=== PATIENT | male | born 2000 | race Caucasian/White ===

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

== ENCOUNTER 2019-03-07 13:10 | Emergency (ER) | payer MEDICAID ==
--- NOTE | 2019-03-07 15:13 | ER Document Report ---
ED Medical Screen (RME) - General Chief Complaint: Foreign Body Stated Complaint: OBJECT IN THROAT Time Seen by Provider: 03/07/19 15:10 Mode of Arrival: Ambulatory Information source: Patient Notes: 17-year-old male presented to ED for complaint of feeling like something is stuck in his throat. He states he had some chicken about 9AM or a piece of tobacco or a piece of pipe tobacco. She states she does not know what continues she just feels like there is something in the back of the start. Patient is alert oriented respirations regular and unlabored speaking in full sentences. I have greeted and performed a rapid initial assessment of this patient. A comprehensive ED assessment and evaluation of the patient, analysis of test results and completion of medical decision making process will be conducted by an additional ED providers. TRAVEL OUTSIDE OF THE [place] IN LAST 30 DAYS: No - Related Data Allergies/Adverse Reactions: aspirin [Aspirin] Allergy (Mild, Verified 11/27/18 16:14) rash brompheniramine maleate [From Dimetapp] Allergy (Mild, Verified 11/27/18 16:14) dehydrates codeine [Codeine] Allergy (Mild, Verified 11/27/18 16:14) headache stomache dextromethorphan HBr [From Dimetapp] Allergy (Mild, Verified 11/27/18 16:14) dehydrates diphenhydramine HCl [From Benadryl] Allergy (Mild, Verified 11/27/18 16:14) Hyperactivity Penicillins Allergy (Mild, Verified 11/27/18 16:14) rash phenylpropanolamine HCl [From Dimetapp] Allergy (Mild, Verified 11/27/18 16:14) dehydrates pseudoephedrine HCl [From Dimetapp] Allergy (Mild, Verified 11/27/18 16:14) dehydrates topiramate [From Topamax] Allergy (Verified 11/27/18 16:14) Past Medical History - Past Medical History Cardiac Medical History: Reports: Hx Heart Murmur Pulmonary Medical History: Reports: Hx Asthma Renal/ Medical History: Denies: Hx Peritoneal Dialysis Psychiatric Medical History: Reports: Hx Attention Deficit Hyperactivity Disorder Past Surgical History: Reports: Hx Tonsillectomy - Immunizations Immunizations up to date: Yes Hx Diphtheria, Pertussis, Tetanus Vaccination: Yes Physical Exam - Vital signs Vitals: Temp Pulse Resp BP Pulse Ox 97.9 F 50 L 18 108/65 100 03/07/19 13:26 03/07/19 13:26 03/07/19 13:26 03/07/19 13:26 03/07/19 13:26 Course - Vital Signs Vital signs: Temp Pulse Resp BP Pulse Ox 97.9 F 50 L 18 108/65 100 03/07/19 13:26 03/07/19 13:26 03/07/19 13:26 03/07/19 13:26 03/07/19 13:26
--- NOTE | 2019-03-07 16:26 | RADIOLOGY REPORT (SQ) ---
EXAM DESCRIPTION: SOFT TISSUE NECK COMPLETED DATE/TIME: 03/07/2019 4:14 pm REASON FOR STUDY: foreign body in throat COMPARISON: None. NUMBER OF VIEWS: Two views. TECHNIQUE: AP and lateral radiographic image of the soft tissues of the neck. LIMITATIONS: None. FINDINGS: EPIGLOTTIS: Normal. Contour normal. Aryepiglottic folds normal. PREVERTEBRAL SOFT TISSUES: Normal. No soft tissue swelling. SUBGLOTTIC AREA: Normal. No narrowing. RETROPHARYNGEAL SPACE: Normal. No soft tissue masses. BONES: No significant findings. LUNG APICES: Normal. OTHER: No radiopaque foreign body. No other significant finding. IMPRESSION: Normal radiographs of the cervical soft tissues. No radiopaque foreign body identified. TECHNICAL DOCUMENTATION: JOB ID: [id number] [employer]- All Rights Reserved Reading location - IP/workstation name: [email or web address]
[2019-03-07] MEDS ORDERED: LIDOCAINE 2% VISCOUS SOLN 20 ML UDCUP PO ONE (18:58)
--- NOTE | 2019-03-07 18:58 | ER Document Report ---
ED General - General Chief Complaint: Foreign Body Stated Complaint: OBJECT IN THROAT Time Seen by Provider: 03/07/19 15:10 Primary Care Provider: CHARLI DAVIS MD [ACTIVE STAFF] - Follow up in 1 week (for GI follow up) Mode of Arrival: Ambulatory TRAVEL OUTSIDE OF THE [place] IN LAST 30 DAYS: No - HPI Notes: 18-year-old male to the emergency department with complaints of foreign body sensation in his esophagus since this morning. He states that he was eating chicken pot pie and he feels like something got stuck. He states that he feels discomfort and not pain. He has not tried to eat anything else for the rest of the day because he has been worried but admits that he has been drinking water without any difficult. He denies any other complaints today. - Related Data Allergies/Adverse Reactions: aspirin [Aspirin] Allergy (Mild, Verified 11/27/18 16:14) rash brompheniramine maleate [From Dimetapp] Allergy (Mild, Verified 11/27/18 16:14) dehydrates codeine [Codeine] Allergy (Mild, Verified 11/27/18 16:14) headache stomache dextromethorphan HBr [From Dimetapp] Allergy (Mild, Verified 11/27/18 16:14) dehydrates diphenhydramine HCl [From Benadryl] Allergy (Mild, Verified 11/27/18 16:14) Hyperactivity Penicillins Allergy (Mild, Verified 11/27/18 16:14) rash phenylpropanolamine HCl [From Dimetapp] Allergy (Mild, Verified 11/27/18 16:14) dehydrates pseudoephedrine HCl [From Dimetapp] Allergy (Mild, Verified 11/27/18 16:14) dehydrates topiramate [From Topamax] Allergy (Verified 11/27/18 16:14) Past Medical History - General Information source: Patient - Social History Smoking Status: Current Every Day Smoker Chew tobacco use (# tins/day): No Frequency of alcohol use: None Family History: Reviewed & Not Pertinent Patient has suicidal ideation: No Patient has homicidal ideation: No - Past Medical History Cardiac Medical History: Reports: Hx Heart Murmur Pulmonary Medical History: Reports: Hx Asthma Renal/ Medical History: Denies: Hx Peritoneal Dialysis Psychiatric Medical History: Reports: Hx Attention Deficit Hyperactivity Disorder Past Surgical History: Reports: Hx Tonsillectomy - Immunizations Immunizations up to date: Yes Hx Diphtheria, Pertussis, Tetanus Vaccination: Yes Hx Pneumococcal Vaccination: 07/01/00 Review of Systems - Review of Systems Constitutional: denies: Chills, Fever EENT: See HPI, Difficulty swallowing Cardiovascular: denies: Chest pain, Palpitations, Heart racing, Syncope, Dizziness, Lightheaded Respiratory: denies: Cough, Short of breath Gastrointestinal: denies: Abdominal pain, Diarrhea, Nausea, Vomiting Genitourinary: No symptoms reported Musculoskeletal: No symptoms reported Skin: No symptoms reported Hematologic/Lymphatic: No symptoms reported Neurological/Psychological: No symptoms reported -: Yes All other systems reviewed and negative Physical Exam - Vital signs Vitals: Temp Pulse Resp BP Pulse Ox 97.9 F 50 L 18 108/65 100 03/07/19 13:26 03/07/19 13:26 03/07/19 13:26 03/07/19 13:26 03/07/19 13:26 - General General appearance: Appears well, Alert In distress: None - HEENT Head: Normocephalic, Atraumatic Eyes: Normal Pupils: PERRL Ears: Normal External canal: Normal Tympanic membrane: Normal Sinus: Normal Nasal: Normal Mouth/Lips: Normal Mucous membranes: Normal Pharynx: Normal. No: Blood in hypopharynx, Erythema, Exudate, Peritonsillar abscess, Post nasal drainage, Retropharyngeal abscess, Tonsillar hypertrophy, Uvular edema, Potential airway comprom. Neck: Normal, Supple. No: Lymphadenopathy, Meningismus - Respiratory Respiratory status: No respiratory distress Chest status: Nontender Breath sounds: Normal Chest palpation: Normal - Cardiovascular Rhythm: Regular Heart sounds: Normal auscultation Murmur: No - Neurological Neuro grossly intact: Yes Cognition: Normal Orientation: AAOx4 Kristen Coma Scale Eye Opening: Spontaneous [place] Coma Scale Verbal: Oriented [place] Coma Scale Motor: Obeys Commands Kristen Coma Scale Total: 15 Speech: Normal Motor strength normal: LUE, RUE, LLE, RLE Sensory: Normal - Psychological Associated symptoms: Normal affect, Normal mood - Skin Skin Temperature: Warm Skin Moisture: Dry Skin Color: Normal Course - Re-evaluation Re-evalutation: 03/07/19 impression: Sensation of foreign body in esophagus. Patient is tolerating fluids without any difficulty. Will send home with Carafate and have him follow-up with GI specialist. Given strict precautions to return if any worsening symptoms to include inability to hold on fluids. Patient agrees with the plan. - Vital Signs Vital signs: Temp Pulse Resp BP Pulse Ox 97.9 F 50 L 18 108/65 100 03/07/19 13:26 03/07/19 13:26 03/07/19 13:26 03/07/19 13:03/07/19 13:26 - Diagnostic Test Radiology reviewed: Image reviewed, Reports reviewed Discharge - Discharge Clinical Impression: Foreign body sensation in throat Condition: Stable Disposition: HOME, SELF-CARE Instructions: Esophageal Foreign Body ([facility]) Additional Instructions: Take medicines as prescribed. Follow-up with GI specialist without fail. Return immediately if any inability to hold down fluids or intractable vomiting. soft food diet. Prescriptions: Sucralfate [Carafate] 1 gm PO TID #420 ml Referrals: CHARLI DAVIS MD [ACTIVE STAFF] - Follow up in 1 week (for GI follow up)
[2019-03-07 20:04] VITALS: BP 105/60
== END 2019-03-07 20:06 | disposition home or self-care (01) ==
LOC: ER 13:10
DX: R09.89 Other specified symptoms and signs involving the circulatory and respiratory systems (principal); R13.10 Dysphagia, unspecified; F17.200 Nicotine dependence, unspecified, uncomplicated; J45.909 Unspecified asthma, uncomplicated; Z88.8 Allergy status to other drugs, medicaments and biological substances; Z88.5 Allergy status to narcotic agent; Z88.0 Allergy status to penicillin; Z88.6 Allergy status to analgesic agent
CPT/HCPCS: 99283; 70360; J3490

== ENCOUNTER 2019-03-24 08:30 | Emergency (ER) | payer MEDICAID ==
[2019-03-24 08:44] VITALS: BP 123/68
--- NOTE | 2019-03-24 09:09 | ER Document Report ---
HPI - HPI Time Seen by Provider: 03/24/19 08:43 Pain Level: 2 Notes: Patient is a 19-year-old male with no significant past medical history who presents complaining of mild swelling of his lower lip after he had piercings placed into areas 6 weeks ago. Patient states that he has had issues with noticing occasional purulence from the sites as well. Patient does not believe that the piercings are taking well to his lip, but does not want to take them out and wants medication for it. He is able to eat and drink without difficulty. He is urinating normally. He has not noticed any other areas of swelling to his lips or throat. Denies any headache, fever, head injury, neck pain, changes in vision/speech/mentation/hearing, URI, sore throat, chest pain, palpitations, syncope, cough, shortness of breath, wheeze, dyspnea, abdominal pain, nausea/vomiting/diarrhea, urinary retention, dysuria, hematuria, numbness/tingling, or rash. - ROS Systems Reviewed and Negative: Yes All other systems reviewed and negative - CONSTITUTIONAL Constitutional: DENIES: Fever, Chills - EENT EENT: DENIES: Sore Throat, Ear Pain, Eye problems - NEURO Neurology: DENIES: Headache, Weakness, Vision blurred, Dizzinesss / Vertigo - CARDIOVASCULAR Cardiovascular: DENIES: Chest pain - RESPIRATORY Respiratory: DENIES: Trouble Breathing, Coughing - GASTROINTESTINAL Gastrointestinal: DENIES: Abdominal Pain, Black / Bloody Stools - URINARY Urinary: DENIES: Dysuria, Urgency, Frequency - REPRODUCTIVE Reproductive: DENIES: : - MUSCULOSKELETAL Musculoskeletal: DENIES: Extremity pain Past Medical History - Social History Smoking Status: Never Smoker Chew tobacco use (# tins/day): No Frequency of alcohol use: None Drug Abuse: None Family History: Reviewed & Not Pertinent Patient has suicidal ideation: No Patient has homicidal ideation: No - Past Medical History Cardiac Medical History: Reports: Hx Heart Murmur Pulmonary Medical History: Reports: Hx Asthma Renal/ Medical History: Denies: Hx Peritoneal Dialysis Psychiatric Medical History: Reports: Hx Attention Deficit Hyperactivity Disorder Past Surgical History: Reports: Hx Tonsillectomy - Immunizations Immunizations up to date: Yes Hx Diphtheria, Pertussis, Tetanus Vaccination: Yes Hx Pneumococcal Vaccination: 07/01/00 Vertical Provider Document - CONSTITUTIONAL Agree With Documented VS: Yes Notes: PHYSICAL EXAMINATION: GENERAL: Well-appearing, well-nourished and in no acute distress. A&Ox4. Answers questions appropriately. Moves comfortably w/o notable distress HEAD: Atraumatic, normocephalic. EYES: Pupils equal round and reactive to light, extraocular movements intact, sclera anicteric, conjunctiva are normal. ENT: Nares patent and with clear discharge. oropharynx no erythema without exudates. No tonsilar hypertrophy without erythema or exudate. No palatine shift. Uvula midline. No tongue protrusion. No drooling, hoarseness, or airway compromise. Moist mucous membranes. No sinus tenderness. No evidence of angioedema aside from mild lower lip swelling. Mouth: + mild swelling lower lip. two piercings in placed. No obvious significant erythema. No streaks. No obvious purulence at this time. No fluctuance. NECK: Normal range of motion, supple without lymphadenopathy. No rigidity/meningismus. LUNGS: Breath sounds clear to auscultation bilaterally and equal. No wheezes rales or rhonchi. No retractions HEART: Regular rate and rhythm without murmurs, rubs, gallops. NEUROLOGICAL: Normal speech, normal gait. Cranial nerves grossly intact. PSYCH: Normal mood, normal affect. SKIN: see above - INFECTION CONTROL TRAVEL OUTSIDE OF THE [place] IN LAST 30 DAYS: No Course - Re-evaluation Re-evalutation: 03/24/19 09:07 Patient is an afebrile, well-hydrated, 19-year-old male who presents with lower lip pain in the setting of 2 piercings with probable mild cellulitis associated. It does not appear that his body is excepting the piercings at this time. Vitals are acceptable without significant tachycardia, tachypnea, or hypoxia. PE is otherwise unremarkable. I reviewed with patient that he needs to remove the piercings, but he does not want to at this time. Risk and benefit thoroughly reviewed. No further work-up warranted. I will send him home on antibiotics. Low suspicion for any meningitis, sepsis, peritonsillar/pharyngeal abscess, respiratory compromise, Homer's, or other emergent systemic condition at this time. Patient is aware this condition can change from initial presentation and he needs to monitor symptoms closely. Conservative measures otherwise for symptoms. Recheck with your PCM in 2-3 days. Return to the ED with any worsening/concerning symptoms otherwise as reviewed in discharge. Patient is in agreement. - Vital Signs Vital signs: Temp Pulse Resp BP Pulse Ox 98.0 F 74 16 123/68 98 03/24/19 08:39 03/24/19 08:39 03/24/19 08:39 03/24/19 08:39 03/24/19 08:39 Discharge - Discharge Clinical Impression: Lip pain Condition: Stable Disposition: HOME, SELF-CARE Additional Instructions: Reconsider removing piercings from your lip as your body does not appear to want to accept them. Keep the skin clean Wash with soap and water Tylenol/ibuprofen if needed Triple antibiotic ointment daily Take medication as directed Monitor for any worsening symptoms Recheck with your PCM in 2-3 days Return to the ED with any worsening symptoms and/or development of fever, headache, chest pain, palpitations, syncope, shortness of breath, trouble breathing, abdominal pain, n/v/d, abscess, purulent discharge, red streaks, worsening swelling, or other worsening symptoms that are concerning to you. Prescriptions: Cephalexin Monohydrate [Keflex 500 mg Capsule] 500 mg PO TID #30 capsule Referrals: ALBERTA MOSELEY DO [ASSOCIATE] - Follow up as needed
== END 2019-03-24 09:22 | disposition home or self-care (01) ==
LOC: ER 08:30
DX: R51 Headache (principal); R22.0 Localized swelling, mass and lump, head; J45.909 Unspecified asthma, uncomplicated
CPT/HCPCS: 99283

== ENCOUNTER 2019-08-03 09:04 | Emergency (ER) | payer MEDICAID ==
[2019-08-03 09:17] VITALS: BP 138/74
--- NOTE | 2019-08-03 09:58 | ER Document Report ---
ED Respiratory Problem - General Chief Complaint: Cough Stated Complaint: COUGH,CONGESTION Time Seen by Provider: 08/03/19 09:50 Primary Care Provider: [facility] [Provider Group] - Follow up as needed [facility] [Provider Group] - Follow up as needed [facility] [Provider Group] - Follow up as needed Mode of Arrival: Ambulatory Information source: Patient Notes: 19-year-old male presented to ED for complaint of cough cold congestion felt hot did not take his temperature. This is been going on for 2 days. He states he did smoke a month ago but quit. Patient is alert oriented respirations regular nonlabored speaking in full sentences lungs clear to auscultation. TRAVEL OUTSIDE OF THE [place] IN LAST 30 DAYS: No - HPI Patient complains to provider of: Antonio Chamberlain is asked ambulatory you is that when you smoke it actually makes your, Short of breath Onset: Other - cough and cold last a lot longer 2 days Duration: Better Initiating Event: URI Quality of pain: Achy Severity: Moderate Pain Level: 3 Context: denies: Smoker - Form Cough: Nonproductive Associated symptoms: Congestion, Cough, Fever, PND Similar symptoms previously: Yes Recently seen / treated by doctor: No - Related Data Allergies/Adverse Reactions: aspirin [Aspirin] Allergy (Mild, Verified 11/27/18 16:14) rash brompheniramine maleate [From Dimetapp] Allergy (Mild, Verified 11/27/18 16:14) dehydrates codeine [Codeine] Allergy (Mild, Verified 11/27/18 16:14) headache stomache dextromethorphan HBr [From Dimetapp] Allergy (Mild, Verified 11/27/18 16:14) dehydrates diphenhydramine HCl [From Benadryl] Allergy (Mild, Verified 11/27/18 16:14) Hyperactivity Penicillins Allergy (Mild, Verified 11/27/18 16:14) rash phenylpropanolamine HCl [From Dimetapp] Allergy (Mild, Verified 11/27/18 16:14) dehydrates pseudoephedrine HCl [From Dimetapp] Allergy (Mild, Verified 11/27/18 16:14) dehydrates topiramate [From Topamax] Allergy (Verified 11/27/18 16:14) Past Medical History - General Information source: Patient - Social History Smoking Status: Former Smoker Frequency of alcohol use: None Drug Abuse: None Lives with: Family Family History: Reviewed & Not Pertinent Patient has suicidal ideation: No Patient has homicidal ideation: No - Past Medical History Cardiac Medical History: Reports: None Pulmonary Medical History: Reports: Hx Asthma EENT Medical History: Reports: None Neurological Medical History: Reports: None Endocrine Medical History: Reports: None Renal/ Medical History: Reports: None Malignancy Medical History: Reports None GI Medical History: Reports: None Musculoskeletal Medical History: Reports None Skin Medical History: Reports None Psychiatric Medical History: Reports: Hx Attention Deficit Hyperactivity Disorder, Hx Depression Traumatic Medical History: Reports: None Infectious Medical History: Reports: None Past Surgical History: Reports: Hx Tonsillectomy - Immunizations Immunizations up to date: Yes Hx Diphtheria, Pertussis, Tetanus Vaccination: Yes Hx Pneumococcal Vaccination: 07/01/00 History of Influenza Vaccine for 03/2019 - 08/2019 Season: No Review of Systems - Review of Systems Constitutional: Chills, Fever, Recent illness EENT: Nose discharge, Sinus pressure, Sinus discharge, Throat pain Cardiovascular: No symptoms reported Respiratory: Cough Gastrointestinal: No symptoms reported Genitourinary: No symptoms reported Male Genitourinary: No symptoms reported Musculoskeletal: No symptoms reported Skin: No symptoms reported Hematologic/Lymphatic: No symptoms reported Neurological/Psychological: No symptoms reported -: Yes All other systems reviewed and negative Physical Exam - Vital signs Vitals: Temp Pulse Resp BP Pulse Ox 98.8 F 98 18 138/74 H 100 08/03/19 09:16 08/03/19 09:16 08/03/19 09:16 08/03/19 09:16 08/03/19 09:16 Interpretation: Normal - General General appearance: Appears well, Alert - HEENT Head: Normocephalic, Atraumatic Eyes: Normal Pupils: PERRL Ears: Normal External canal: Normal Tympanic membrane: Normal Sinus: Normal Nasal: Purulent discharge, Swelling Mouth/Lips: Normal Mucous membranes: Normal Pharynx: Post nasal drainage Neck: Normal - Respiratory Respiratory status: No respiratory distress Chest status: Nontender Breath sounds: Nonproductive cough Chest palpation: Normal - Cardiovascular Rhythm: Regular Heart sounds: Normal auscultation Murmur: No - Abdominal Inspection: Normal Distension: No distension Bowel sounds: Normal Tenderness: Nontender Organomegaly: No organomegaly - Back Back: Normal, Nontender - Extremities General upper extremity: Normal inspection, Nontender, Normal color, Normal ROM, Normal temperature General lower extremity: Normal inspection, Nontender, Normal color, Normal ROM, Normal temperature, Normal weight bearing. No: Michelle's sign - Neurological Neuro grossly intact: Yes Cognition: Normal Orientation: AAOx4 [place] Coma Scale Eye Opening: Spontaneous Kristen Coma Scale Verbal: Oriented [place] Coma Scale Motor: Obeys Commands [place] Coma Scale Total: 15 Speech: Normal Motor strength normal: LUE, RUE, LLE, RLE Sensory: Normal - Psychological Associated symptoms: Normal affect, Normal mood - Skin Skin Temperature: Warm Skin Moisture: Dry Skin Color: Normal Course - Re-evaluation Re-evalutation: 08/03/19 22:12 After performing a Medical Screening Examination, I estimate there is LOW risk for ACUTE CORONARY SYNDROME, RESPIRATORY FAILURE, SEPSIS OR MENINGITIS, thus I consider the discharge disposition reasonable. I have reevaluated this patient multiple times and no significant life threatening changes are noted. The patient and I have discussed the diagnosis and risks, and we agree with discharging home with close follow-up. We also discussed returning to the Emergency Department immediately if new or worsening symptoms occur. We have discussed the symptoms which are most concerning (e.g., changing or worsening pain, trouble swallowing or breathing, neck stiffness, fever) that necessitate immediate return. - Vital Signs Vital signs: Temp Pulse Resp BP Pulse Ox 98.8 F 98 18 138/74 H 100 08/03/19 09:16 08/03/19 09:16 08/03/19 09:16 08/03/19 09:16 08/03/19 09:16 Discharge - Discharge Clinical Impression: URI (upper respiratory infection) Qualifiers: URI type: unspecified viral URI Qualified Code(s): J06.9 - Acute upper respiratory infection, unspecified Disposition: HOME, SELF-CARE Additional Instructions: UPPER RESPIRATORY ILLNESS: You have a viral infection of the respiratory passages -- a "cold." This common infection causes nasal congestion, drainage, and often sore throat and cough. It is highly contagious. The disease usually lasts about 10 to 14 days. There is no "cure" for the viral infection -- it must run its course. If there is a complication, such as bacterial infection in the nose, sinuses, middle ear, or bronchial tubes, antibiotics may be required. The antibiotics won't affect the virus. Drink plenty of fluids. A humidifier may help. An expectorant medication or decongestant may make you more comfortable. Use acetaminophen or ibuprofen for fever or aches. See the doctor if fever persists over two days, if there is any significant worsening of your symptoms, or if you simply fail to improve as expected. You have been recommended treatment with Claritin 10 mg Sudafed 30 mg and Mucinex 600 mg. These are all [id number] medications for cough cold congestion. You do need to call the go to the pharmacist to get the Sudafed from behind the counter please get a little red pills they are more effective. You could also use Flonase which is [id number] 1 spray each nostril twice a day. You could also use salt soda solution gargles. These will help to remove the drainage from the back your throat. Chloraseptic spray was [id number] that will also help with your sore throat. Salt and soda solution gargle 1 quart of water 1 tablespoon of salt 1 teaspoon of baking soda Mixed 3 ingredients together and boil for 1 minute Placed in a covered quart jar Use 1/2 ounce of cold solution to gargle 3 times a day COUGH-SUPPRESSANT & EXPECTORANT MEDICATION: You are to use a cough medication as needed for relief of symptoms. This medicine is a combination of an expectorant (to make the mucous thinner and more easily "coughed up") and a cough suppressant (to reduce the frequency of coughing). The cough-suppressant medicine is related to narcotics. You may experience mild nausea and sleepiness. Some patients who are very sensitive to narcotics may have stomach pain from this medicine. Taking the medicine with food reduces these side effects. Do not drive or work with machinery until you know how this medicine affects you. The expectorant should have no side effects. Iodine-containing expectorants (such as organidin) should not be taken by persons with active thyroid disease unless approved by your doctor. Call the doctor if you develop shortness of breath, hives, rash, itching, lightheadedness, or severe nausea and vomiting. USE OF ACETAMINOPHEN (Tylenol): Acetaminophen may be taken for pain relief or fever control. It's much safer than aspirin, offering a wider range of "safe" dosages. It is safe during . Some brand names are Tylenol, Panadol, Datril, Anacin 3, Tempra, and Liquiprin. Acetaminophen can be repeated every four hours. The following are maximum recommended dosages: >89 pounds or adults 650 mg to 900 mg Acetaminophen can be repeated every four hours. Maximum dose not to exceed 4000 mg a day. SMOKING: If you smoke, you should stop smoking. The tar and chemicals in cigarette smoke are harmful. Smoking has been shown to cause: emphysema chronic bronchitis lung cancer mouth and throat cancer stomach and pancreas cancer premature aging defects In addition, smoking increases ear and lung infections in children of smokers. FOLLOW-UP CARE: If you have been referred to a physician for follow-up care, call the physicians office for an appointment as you were instructed or within the next two days. If you experience worsening or a significant change in your symptoms, notify the physician immediately or return to the Emergency Department at any time for re-evaluation. Forms: Elevated Blood Pressure Referrals: [facility] [Provider Group] - Follow up as needed [facility] [Provider Group] - Follow up as needed [facility] [Provider Group] - Follow up as needed
== END 2019-08-03 10:01 | disposition home or self-care (01) ==
LOC: ER 09:04
DX: J06.9 Acute upper respiratory infection, unspecified (principal); B97.89 Other viral agents as the cause of diseases classified elsewhere; R05 Cough; R50.9 Fever, unspecified; R09.82 Postnasal drip; R07.0 Pain in throat; R09.89 Other specified symptoms and signs involving the circulatory and respiratory systems; J45.909 Unspecified asthma, uncomplicated; Z87.891 Personal history of nicotine dependence; Z88.8 Allergy status to other drugs, medicaments and biological substances; Z88.6 Allergy status to analgesic agent; Z88.5 Allergy status to narcotic agent; Z88.0 Allergy status to penicillin
CPT/HCPCS: 99283

== ENCOUNTER 2020-01-13 08:01 | Emergency (ER) | payer MEDICAID ==
--- NOTE | 2020-01-13 10:13 | RADIOLOGY REPORT (SQ) ---
EXAM DESCRIPTION: FOOT RIGHT COMPLETE IMAGES COMPLETED DATE/TIME: 01/13/2020 10:05 am REASON FOR STUDY: pain COMPARISON: None. NUMBER OF VIEWS: Three views. TECHNIQUE: AP, lateral and oblique radiographic images acquired of the right foot. LIMITATIONS: None. FINDINGS: MINERALIZATION: Normal. BONES: No acute fracture or dislocation. No worrisome bone lesions. Prominent Navicular process. JOINTS: No effusions. SOFT TISSUES: No soft tissue swelling. No foreign body. OTHER: No other significant finding. IMPRESSION: NEGATIVE STUDY OF THE RIGHT FOOT. NO RADIOGRAPHIC EVIDENCE OF ACUTE INJURY. TECHNICAL DOCUMENTATION: JOB ID: [id number] 2010 [employer]- All Rights Reserved Reading location - IP/workstation name: [email or web address]
--- NOTE | 2020-01-13 10:55 | ER Document Report ---
ED Extremity Problem, Lower - General Chief Complaint: Foot Pain Stated Complaint: FEET PROBLEMS Time Seen by Provider: 01/13/20 09:14 Mode of Arrival: Ambulatory Information source: Patient TRAVEL OUTSIDE OF THE [place] IN LAST 30 DAYS: No - HPI Notes: Patient presents with right foot discomfort. He states is mainly located on the sole of his foot. He has noticed the pain is worse when he walks and better with rest. It is a mild to moderate pain. He is also noticed that appears to have a "blood blister". He does not believe he has any type of foreign body or any known injury. He states that it is an irritating type of pain and keeps him up at night. There is no significant radiation of the pain. - Related Data Allergies/Adverse Reactions: aspirin [Aspirin] Allergy (Mild, Verified 01/13/20 08:18) rash brompheniramine maleate [From Dimetapp] Allergy (Mild, Verified 01/13/20 08:18) dehydrates codeine [Codeine] Allergy (Mild, Verified 01/13/20 08:18) headache stomache dextromethorphan HBr [From Dimetapp] Allergy (Mild, Verified 01/13/20 08:18) dehydrates diphenhydramine HCl [From Benadryl] Allergy (Mild, Verified 01/13/20 08:18) Hyperactivity Penicillins Allergy (Mild, Verified 01/13/20 08:18) rash phenylpropanolamine HCl [From Dimetapp] Allergy (Mild, Verified 01/13/20 08:18) dehydrates pseudoephedrine HCl [From Dimetapp] Allergy (Mild, Verified 01/13/20 08:18) dehydrates topiramate [From Topamax] Allergy (Verified 01/13/20 08:18) Past Medical History - General Information source: Patient - Social History Smoking Status: Former Smoker Chew tobacco use (# tins/day): No Frequency of alcohol use: None Drug Abuse: None Family History: Reviewed & Not Pertinent Patient has homicidal ideation: No Pulmonary Medical History: Reports: Hx Asthma Psychiatric Medical History: Reports: Hx Attention Deficit Hyperactivity Disorder, Hx Depression Past Surgical History: Reports: Hx Tonsillectomy - Immunizations Immunizations up to date: Yes Hx Diphtheria, Pertussis, Tetanus Vaccination: Yes Hx Pneumococcal Vaccination: 01/01/01 Review of Systems - Review of Systems Constitutional: denies: Chills, Fever Cardiovascular: denies: Chest pain, Palpitations Respiratory: denies: Cough, Short of breath -: Yes All other systems reviewed and negative Physical Exam - Vital signs Vitals: Temp Pulse Resp BP Pulse Ox 98.5 F 59 L 16 119/77 98 01/13/20 08:06 01/13/20 08:06 01/13/20 08:06 01/13/20 08:06 01/13/20 08:06 Interpretation: Normal - General General appearance: Appears well, Alert - HEENT Head: Normocephalic, Atraumatic Eyes: Normal Pupils: PERRL - Respiratory Respiratory status: No respiratory distress Chest status: Nontender Breath sounds: Normal Chest palpation: Normal - Cardiovascular Rhythm: Regular Heart sounds: Normal auscultation Murmur: No - Abdominal Inspection: Normal Distension: No distension Bowel sounds: Normal Tenderness: Nontender Organomegaly: No organomegaly - Back Back: Normal, Nontender - Extremities General upper extremity: Normal inspection, Nontender, Normal color, Normal ROM, Normal temperature General lower extremity: Tender - Patient has an erythematous mildly raised and tender area in the mid sole. It appears most consistent with a possible plantars wart, Normal color, Normal ROM, Normal temperature. No: Michelle's sign - Neurological Neuro grossly intact: Yes Cognition: Normal Orientation: AAOx4 Kristen Coma Scale Eye Opening: Spontaneous Mullins Coma Scale Verbal: Oriented Kristen Coma Scale Motor: Obeys Commands Mullins Coma Scale Total: 15 Speech: Normal Motor strength normal: LUE, RUE, LLE, RLE Sensory: Normal - Psychological Associated symptoms: Normal affect, Normal mood - Skin Skin Temperature: Warm Skin Moisture: Dry Skin Color: Normal Course - Re-evaluation Re-evalutation: 01/13/20 10:52 I believe the patient has a plantars wart. I will refer him to podiatry. - Vital Signs Vital signs: Temp Pulse Resp BP Pulse Ox 98.5 F 59 L 16 119/77 98 01/13/20 08:06 01/13/20 08:06 01/13/20 08:06 01/13/20 08:06 01/13/20 08:06 - Diagnostic Test Radiology reviewed: Image reviewed, Reports reviewed Discharge - Discharge Clinical Impression: Plantar wart of right foot Condition: Stable Disposition: HOME, SELF-CARE Instructions: Plantar Warts ([facility]) Prescriptions: Tramadol HCl [Ultram] 50 mg PO Q6 PRN 3 Days #12 tablet PRN Reason: Forms: Return to Work Referrals: NARINDER FELIPE DPM [ACTIVE STAFF] - Follow up in 3-5 days
[2020-01-13 11:08] VITALS: BP 122/63
== END 2020-01-13 11:08 | disposition home or self-care (01) ==
LOC: ER 08:01
DX: B07.0 Plantar wart (principal); M79.671 Pain in right foot; Z88.8 Allergy status to other drugs, medicaments and biological substances; Z88.0 Allergy status to penicillin; Z87.891 Personal history of nicotine dependence; J45.909 Unspecified asthma, uncomplicated
CPT/HCPCS: 99283

== ENCOUNTER 2020-01-20 16:04 | Emergency (ER) | payer MEDICAID ==
--- NOTE | 2020-01-20 18:35 | ER Document Report ---
ED Medical Screen (RME) - General Chief Complaint: Shortness Of Breath Stated Complaint: SHORTNESS OF BREATH Time Seen by Provider: 01/20/20 18:31 TRAVEL OUTSIDE OF THE [place] IN LAST 30 DAYS: No - HPI Notes: 01/20/20 19:47 19-year-old male presents emergency room today for chest pain that he had last night for approximately 2 hours. Reports that he is not sure if he had any shortness of breath with it but reports he also has muscle aches. Denies any chest pain today. Does report that he has a cough that he "would not describe is dry but would not describe is wet" for the last two days. states that he does have a runny nose that started today. Patient denies any cold exposure, states he is not tested positive for COVID. Has been eating and drinking without any issues. States that he has not had any fevers or chills. No ogll-ihh-sngxync medications have been tried. I have greeted and performed a rapid initial assessment of this patient. A comprehensive ED assessment and evaluation of the patient, analysis of test results and completion of the medical decision making process will be conducted by additional ED providers. PHYSICAL EXAMINATION: GENERAL: Well-appearing, well-nourished and in no acute distress. HEAD: Atraumatic, normocephalic. EYES: Pupils equal round extraocular movements intact, conjunctiva are normal. NECK: Normal range of motion CV: s1, s2 regular LUNGS: No respiratory distress - Related Data Allergies/Adverse Reactions: aspirin [Aspirin] Allergy (Mild, Verified 01/13/20 08:18) rash brompheniramine maleate [From Dimetapp] Allergy (Mild, Verified 01/13/20 08:18) dehydrates codeine [Codeine] Allergy (Mild, Verified 01/13/20 08:18) headache stomache dextromethorphan HBr [From Dimetapp] Allergy (Mild, Verified 01/13/20 08:18) dehydrates diphenhydramine HCl [From Benadryl] Allergy (Mild, Verified 01/13/20 08:18) Hyperactivity Penicillins Allergy (Mild, Verified 01/13/20 08:18) rash phenylpropanolamine HCl [From Dimetapp] Allergy (Mild, Verified 01/13/20 08:18) dehydrates pseudoephedrine HCl [From Dimetapp] Allergy (Mild, Verified 01/13/20 08:18) dehydrates topiramate [From Topamax] Allergy (Verified 01/13/20 08:18) Past Medical History - Social History Frequency of alcohol use: None Drug Abuse: None Pulmonary Medical History: Reports: Hx Asthma Psychiatric Medical History: Reports: Hx Attention Deficit Hyperactivity Disorder, Hx Depression Past Surgical History: Reports: Hx Tonsillectomy - Immunizations Immunizations up to date: Yes Hx Diphtheria, Pertussis, Tetanus Vaccination: Yes Physical Exam - Vital signs Vitals: Temp Pulse Resp BP Pulse Ox 98.5 F 100 16 113/76 98 01/20/20 16:11 01/20/20 16:11 01/20/20 16:11 01/20/20 16:11 01/20/20 16:11 Course - Vital Signs Vital signs: Temp Pulse Resp BP Pulse Ox 98.5 F 100 16 113/76 98 01/20/20 16:11 01/20/20 16:11 01/20/20 16:11 01/20/20 16:11 01/20/20 16:11
--- NOTE | 2020-01-20 19:18 | RADIOLOGY REPORT (SQ) ---
EXAM DESCRIPTION: CHEST SINGLE VIEW IMAGES COMPLETED DATE/TIME: 01/20/2020 6:01 pm REASON FOR STUDY: cp. Chest pain. COMPARISON: 07/15/2014 EXAM PARAMETERS: NUMBER OF VIEWS: One view. TECHNIQUE: Single frontal radiographic view of the chest acquired. RADIATION DOSE: NA LIMITATIONS: None. FINDINGS: LUNGS AND PLEURA: No opacities, masses or pneumothorax. No pleural effusion. MEDIASTINUM AND HILAR STRUCTURES: No masses. Contour normal. HEART AND VASCULAR STRUCTURES: Heart normal in size. Normal vasculature. BONES: No acute findings. HARDWARE: None in the chest. OTHER: No other significant finding. IMPRESSION: NO ACUTE RADIOGRAPHIC FINDING IN THE CHEST. TECHNICAL DOCUMENTATION: JOB ID: [id number] 2010 [employer]- All Rights Reserved Reading location - IP/workstation name: [email or web address]
[2020-01-21 04:53] LABS: ABSOLUTE EOSINOPHILS # (AUTO) 0.1 10^3/uL (0.0-0.6); ABSOLUTE LYMPHOCYTES (AUTO) 1.8 10^3/uL (0.5-4.7); ABSOLUTE MONOCYTES (AUTO) 0.5 10^3/uL (0.1-1.4); ABSOLUTE NEUT (AUTO) 4.4 10^3/uL (1.7-8.2); BASOPHILS % (AUTO) 0.6 % (0-2); EOSINOPHILS % (AUTO) 1.5 % (0-6); HEMATOCRIT 46.4 % (37.9-51.0); HEMOGLOBIN 16.4 g/dL (13.5-17.0); LYMPHOCYTES % (AUTO) 26.9 % (13-45); MEAN CORPUSCULAR HEMOGLOBIN 30.7 pg (27.0-33.4); MEAN CORPUSCULAR HGB CONC 35.3 g/dL (32.0-36.0); MEAN CORPUSCULAR VOLUME 87 fl (80-97); PLATELET COUNT 233 10^3/uL (150-450); RED BLOOD COUNT 5.33 10^6/uL (4.35-5.55); RED CELL DISTRIBUTION WIDTH 12.6 % (11.5-14.0); TOTAL CELLS COUNTED % (AUTO) 100 %; WHITE BLOOD COUNT 6.8 10^3/uL (4.0-10.5)
[2020-01-21 04:57] LABS: BLOOD UREA NITROGEN 27 mg/dL (7-20); CALCIUM 9.4 mg/dL (8.4-10.2); GLUCOSE 94 mg/dL (75-110)
[2020-01-21 04:58] LABS: ALBUMIN 4.8 g/dL (3.5-5.0); ALKALINE PHOSPHATASE 45 U/L (38-126); ANION GAP 8 (5-19); ASPARTATE AMINO TRANSFERASE 33 U/L (17-59); BILIRUBIN,TOTAL 1.6 mg/dL (0.2-1.3); CARBON DIOXIDE 29 mmol/L (22-30); CHLORIDE 102 mmol/L (98-107); CREATINE KINASE 39 U/L (55-170); TOTAL PROTEIN 7.4 g/dL (6.3-8.2)
[2020-01-21 05:10] LABS: CREATINE KINASE MB < 0.22 ng/mL (<4.55); TROPONIN I < 0.012 ng/mL
[2020-01-21] MEDS ORDERED: POTASSIUM CHLORIDE 10 MEQ TABLET.ER PO ONE (05:28)
--- NOTE | 2020-01-21 05:48 | ER Document Report ---
ED General - General Chief Complaint: Chest Pain Stated Complaint: SHORTNESS OF BREATH Time Seen by Provider: 01/20/20 18:31 Primary Care Provider: NOREEN SHAH PA [Primary Care Provider] - Follow up as needed TRAVEL OUTSIDE OF THE [place] IN LAST 30 DAYS: No - HPI Notes: 19-year-old male history of mild intermittent asthma presents with approximately 1 day of retro-sternal chest pain that feels aching and nonradiating associated with transient shortness of breath that resolved and diffuse myalgia and mild dry cough. Patient has not needed to take albuterol inhaler during his current symptoms. Patient currently feels improved although feels generally weak. Patient endorses having had poor p.o. intake over the past few days because he has had decreased appetite. Patient denies any lower extremity edema, recent surgery/trauma/immobilization, cancer history, hemoptysis, exogenous estrogen therapy, DVT/PE/hypercoag history in self or family, sick contacts, smoking or drug use - Related Data Allergies/Adverse Reactions: aspirin [Aspirin] Allergy (Mild, Verified 01/13/20 08:18) rash brompheniramine maleate [From Dimetapp] Allergy (Mild, Verified 01/13/20 08:18) dehydrates codeine [Codeine] Allergy (Mild, Verified 01/13/20 08:18) headache stomache dextromethorphan HBr [From Dimetapp] Allergy (Mild, Verified 01/13/20 08:18) dehydrates diphenhydramine HCl [From Benadryl] Allergy (Mild, Verified 01/13/20 08:18) Hyperactivity Penicillins Allergy (Mild, Verified 01/13/20 08:18) rash phenylpropanolamine HCl [From Dimetapp] Allergy (Mild, Verified 01/13/20 08:18) dehydrates pseudoephedrine HCl [From Dimetapp] Allergy (Mild, Verified 01/13/20 08:18) dehydrates topiramate [From Topamax] Allergy (Verified 01/13/20 08:18) Past Medical History - General Information source: Patient - Social History Smoking Status: Current Every Day Smoker Frequency of alcohol use: None Drug Abuse: None Family History: Reviewed & Not Pertinent Pulmonary Medical History: Reports: Hx Asthma Psychiatric Medical History: Reports: Hx Attention Deficit Hyperactivity Disorder, Hx Depression Past Surgical History: Reports: Hx Tonsillectomy - Immunizations Immunizations up to date: Yes Hx Diphtheria, Pertussis, Tetanus Vaccination: Yes Hx Pneumococcal Vaccination: 07/01/00 Review of Systems - Review of Systems Notes: REVIEW OF SYSTEMS: CONSTITUTIONAL : Denies fever, chills, or sweats. EENT: Denies recent cold/sinus symptoms, denies throat pain CARDIOVASCULAR: +chest pain, -BRODY RESPIRATORY: +cough, +shortness of breath. GASTROINTESTINAL: Denies abdominal pain, nausea/vomiting. GENITOURINARY: Denies difficulty urinating, painful urination. MUSCULOSKELETAL: Denies neck pain, back pain. SKIN: Denies rash or skin lesions. HEMATOLOGIC : Denies easy bruising or bleeding. LYMPHATIC: Denies swollen, enlarged glands. NEUROLOGICAL: Denies headache, denies change in gait. PSYCHIATRIC: Denies anxiety or stress or depression. Physical Exam - Vital signs Vitals: Temp Pulse Resp BP Pulse Ox 98.5 F 100 16 113/76 98 01/20/20 16:11 01/20/20 16:11 01/20/20 16:11 01/20/20 16:11 01/20/20 16:11 - Notes Notes: PHYSICAL EXAMINATION: GENERAL: Well-appearing, well-nourished and in no acute distress. HEAD: Atraumatic, normocephalic. EYES: Pupils equal round and appropriate constriction, sclera anicteric, conjunctiva are normal. ENT: nares patent, moist mucous membranes. NECK: Normal range of motion, supple without lymphadenopathy LUNGS: Breath sounds clear to auscultation bilaterally and equal. No wheezes rales or rhonchi. Normal respiratory rate and effort. HEART: Regular rate and rhythm without murmurs ABDOMEN: Soft, nontender, no guarding, no masses, no CVAT EXTREMITIES: Normal range of motion, no pitting or edema. No cyanosis. NEUROLOGICAL: Awake, alert, conversing appropriately, moves all extremities spontaneously. PSYCH: Normal mood, normal affect. SKIN: Warm, Dry, normal turgor, no rashes or lesions noted. Course - Re-evaluation Re-evalutation: 01/21/20 06:13 Mild transient diffuse aching chest discomfort associated with very shortness of breath and viral symptoms concerning for possible mild COVID-19 infection, but patient has no signs of increased respiratory effort, has normal exam currently. Obtain d-dimer to rule out PE given patient initially heart rate of 100 which was negative. Patient has no other PE risk factors and heart rate normalized on its own without intervention. Patient found to be hypokalemic likely secondary to patient's recent poor p.o. intake. Informed patient of this finding and repleted potassium and instructed him to increase his food and fluid intake especially during his acute illness. Patient very well-appearing, no current indication for hospitalization, other lab work unremarkable besides mild dehydration mildly elevated BUN which I educated patient on. Instructed patient to follow-up with his primary doctor and gave extensive return to ED precautions which he demonstrated understanding of. - Vital Signs Vital signs: Temp Pulse Resp BP Pulse Ox 98.4 F 72 24 H 125/88 H 100 01/21/20 06:28 01/21/20 06:28 01/21/20 06:28 01/21/20 06:28 01/21/20 06:28 - Laboratory Result Diagrams: 01/21/20 03:40 01/21/20 03:40 Laboratory results interpreted by me: 01/21/20 03:40 Potassium 3.0 L* BUN 27 H Total Bilirubin 1.6 H Creatine Kinase 39 L - EKG Interpretation by Me Additional EKG results interpreted by me: 01/21/20 05:00 Heart rate 53, normal sinus rhythm, no significant ST elevations or depressions Discharge - Discharge Clinical Impression: Hypokalemia, Cough Chest pain Qualifiers: Chest pain type: unspecified Qualified Code(s): R07.9 - Chest pain, unspecified Condition: Stable Disposition: HOME, SELF-CARE Additional Instructions: Chest Pain of Unclear Cause The exact cause of your chest pain isn't clear. Fortunately, there is no evidence of a dangerous medical condition. Further testing may be required to find the source of the pain. Most often, we find that this pain is coming from the chest wall -- the muscles or rib joints in the chest. But chest pain can come from the lung and lung lining, the esophagus, the heart valves or heart lining, and even the stomach or gallbladder. Rest. Eat lightly until the pain is gone. We may prescribe medicine for pain and inflammation. You should call the physician immediately if the pain radiates to the shoulder, jaw or arms; if you start to run a fever or develop a cough; or if you develop shortness of breath, or other new or alarming symptoms. Patient was provided with discharge information including: As a person under investigation for Covid 19, the [place] department of Health and Human Services, division of public health advises you to adhere to the following guidance until your test results are reported to you. If your test result is positive, you will receive additional information from your [facility] and your local health department at that time. Remain at home until you are cleared by the health provider or public health authorities. Keep a log of visitors to your home, notify any visitors to your home of your isolation status. If you plan to move to a new address or leave the county, notify the local health department in your County. Call your doctor or seek care if you have an urgent medical need. Before seeking medical care, call ahead to get instructions from the provider before arriving at the medical office clinic or hospital. Notify them that you are being tested for the virus that causes Covid 19 so that arrangements can be made, as necessary, to prevent transmission to others in the healthcare setting. Next, notify the local health department in your county. If a medical emergency arises and you need to call 911, inform the first responders that you are being tested for the virus that causes Covid 19. Next, notify the local health department in your county. Hypokalemia You have an abnormally decreased level of serum potassium. Hypokalemia may cause weakness, fatigue, or heart rhythm abnormalities. Sometimes there are no symptoms at all. Usually, low serum potassium is due to taking diuretics (water pills). It can also be due to excessive vomiting or diarrhea. If no obvious cause is evident, further evaluation will be necessary. Treatment is usually oral potassium supplements. Take these exactly as prescribed. You may also want to select foods which are naturally high in potassium -- fruits (such as bananas, cantaloupe, grapes, oranges, prunes, tomatoes), fresh vegetables (potatoes, spinach, beans, peas), orange or tomato juice, tomato pasta sauce, milk, fish (halibut, tuna, salmon, cande) A follow-up blood test is usually performed to assure that the potassium is returning to normal. Follow-up with the primary doctor within 1 week. If you should have any worsening symptoms, worsening pain, shortness of breath, dizziness, fainting, weakness, muscle twitching or cramping, palpitations (pounding or irregular heartbeat), or any other worsening or alarming symptoms return to the ED immediately Referrals: NOREEN SHAH PA [Primary Care Provider] - Follow up as needed
[2020-01-21 06:23] VITALS: BP 125/88
--- NOTE | 2020-01-21 09:23 | EKG REPORT ---
SEVERITY:- OTHERWISE NORMAL ECG - SINUS RHYTHM BORDERLINE RIGHT AXIS DEVIATION : Confirmed by: Rory Kaye 21-Jan-2020 09:23:17
== END 2020-01-21 06:37 | disposition home or self-care (01) ==
LOC: ER 16:04
DX: E87.6 Hypokalemia (principal); R07.9 Chest pain, unspecified; R05 Cough; R06.02 Shortness of breath; M79.10 Myalgia, unspecified site; R53.1 Weakness; R63.0 Anorexia; Z88.8 Allergy status to other drugs, medicaments and biological substances; Z88.0 Allergy status to penicillin; F17.200 Nicotine dependence, unspecified, uncomplicated; J45.909 Unspecified asthma, uncomplicated; Z20.828 Contact with and (suspected) exposure to other viral communicable diseases
CPT/HCPCS: 93005; 99284; 36415; 82553; 82550; 85025; 87635; 80053; 84484; 85379; 71045; 93010; C9803

== ENCOUNTER 2020-05-25 07:26 | Emergency (ER) | payer MEDICAID ==
[2020-05-25] MEDS ORDERED: ACETAMINOPHEN 325 MG TABLET PO ONE (07:48)
--- NOTE | 2020-05-25 08:33 | RADIOLOGY REPORT (SQ) ---
EXAM DESCRIPTION: CHEST SINGLE VIEW IMAGES COMPLETED DATE/TIME: 05/25/2020 8:24 am REASON FOR STUDY: COUGH FEVER COMPARISON: 01/20/2020 EXAM PARAMETERS: NUMBER OF VIEWS: One view. TECHNIQUE: Single frontal radiographic view of the chest acquired. RADIATION DOSE: NA LIMITATIONS: None. FINDINGS: LUNGS AND PLEURA: No focal consolidation, pleural effusion or pneumothorax. MEDIASTINUM AND HILAR STRUCTURES: No masses. Contour normal. HEART AND VASCULAR STRUCTURES: Heart normal in size. Normal vasculature. BONES: No acute findings. HARDWARE: None in the chest. OTHER: No other significant finding. IMPRESSION: No evidence of acute cardiopulmonary process. TECHNICAL DOCUMENTATION: JOB ID: [id number] 2010 [email or web address]- All Rights Reserved Reading location - IP/workstation name: [email or web address]
--- NOTE | 2020-05-25 08:53 | ER Document Report ---
Entered by LISA WATKINS SCRIBE 05/25/20 0801 Acting as scribe for:FERNANDO LARSEN MD ED General - General Chief Complaint: Fever Stated Complaint: COUGH, CONGESTION, BODY ACHE Time Seen by Provider: 05/25/20 07:57 Mode of Arrival: Ambulatory Information source: Patient Notes: This 20 year old male patient presents to the ED today with complaints of fever, mild nonproductive cough, and congestion for the past x2-3 days. Patient reports green mucus when he blows his nose. He states that he did have a sore throat initially, but it resolved after taking OTC medications. He notes positive sick contact and discloses that he is homeless living in tent. He did not receive a flu shot this year. TRAVEL OUTSIDE OF THE [place] IN LAST 30 DAYS: No - Related Data Allergies/Adverse Reactions: aspirin [Aspirin] Allergy (Mild, Verified 05/25/20 07:33) rash brompheniramine maleate [From Dimetapp] Allergy (Mild, Verified 05/25/20 07:33) dehydrates codeine [Codeine] Allergy (Mild, Verified 05/25/20 07:33) headache stomache dextromethorphan HBr [From Dimetapp] Allergy (Mild, Verified 05/25/20 07:33) dehydrates diphenhydramine HCl [From Benadryl] Allergy (Mild, Verified 05/25/20 07:33) Hyperactivity Penicillins Allergy (Mild, Verified 05/25/20 07:33) rash phenylpropanolamine HCl [From Dimetapp] Allergy (Mild, Verified 05/25/20 07:33) dehydrates pseudoephedrine HCl [From Dimetapp] Allergy (Mild, Verified 05/25/20 07:33) dehydrates topiramate [From Topamax] Allergy (Verified 05/25/20 07:33) Past Medical History - General Information source: Patient, [facility] Records - Social History Smoking Status: Never Smoker Cigarette use (# per day): No Chew tobacco use (# tins/day): No Smoking Education Provided: No Frequency of alcohol use: Occasional Drug Abuse: None Lives with: Homeless Family History: Reviewed & Not Pertinent Patient has suicidal ideation: No Patient has homicidal ideation: No Pulmonary Medical History: Reports: Hx Asthma Psychiatric Medical History: Reports: Hx Attention Deficit Hyperactivity Disorder, Hx Depression Past Surgical History: Reports: Hx Tonsillectomy - Immunizations Immunizations up to date: Yes Hx Diphtheria, Pertussis, Tetanus Vaccination: Yes Hx Pneumococcal Vaccination: 07/01/00 Review of Systems - Review of Systems Constitutional: See HPI, Fever EENT: See HPI, Nose congestion, Nose discharge. denies: Throat pain Cardiovascular: No symptoms reported Respiratory: See HPI, Cough. denies: Sputum Gastrointestinal: No symptoms reported Genitourinary: No symptoms reported Male Genitourinary: No symptoms reported Musculoskeletal: No symptoms reported Skin: No symptoms reported Hematologic/Lymphatic: No symptoms reported Neurological/Psychological: No symptoms reported -: Yes All other systems reviewed and negative Physical Exam - Vital signs Vitals: Temp Pulse Resp BP Pulse Ox 101.5 F H 99 16 114/65 98 05/25/20 07:32 05/25/20 07:32 05/25/20 07:32 05/25/20 07:32 05/25/20 07:32 - General General appearance: Appears well, Alert In distress: None - HEENT Head: Normocephalic, Atraumatic Eyes: Normal Pupils: PERRL Tympanic membrane: Normal. No: Injected Nasal: Clear rhinorrhea Pharynx: Erythema. No: Exudate, Uvular edema - Respiratory Respiratory status: No respiratory distress Chest status: Nontender Breath sounds: Normal Chest palpation: Normal - Cardiovascular Rhythm: Regular, Tachycardia Heart sounds: Normal auscultation Murmur: No Friction rub: No Gallop: None auscultated - Abdominal Inspection: Normal Distension: No distension Bowel sounds: Normal Tenderness: Nontender - Abdomen soft Organomegaly: No organomegaly - Back Back: Normal, Nontender - Extremities General upper extremity: Normal inspection General lower extremity: Normal inspection. No: Edema - Neurological Neuro grossly intact: Yes Orientation: AAOx4 Maramec Coma Scale Eye Opening: Spontaneous Kristen Coma Scale Verbal: Oriented Maramec Coma Scale Motor: Obeys Commands Kristen Coma Scale Total: 15 - Psychological Associated symptoms: Normal affect, Normal mood - Skin Skin Temperature: Warm Skin Moisture: Dry Skin Color: Normal Course - Re-evaluation Re-evalutation: 05/25/20 10:50 The patient was evaluated during the global COVID-19 pandemic and that diagnosis was suspected/considered upon their initial presentation. Their evaluation, evin atment and testing was consistent with current guidelines for patients who present with complaints or symptoms that may be related to COVID-19. - Vital Signs Vital signs: Temp Pulse Resp BP Pulse Ox 98.8 F 99 16 114/65 98 05/25/20 09:13 05/25/20 07:32 05/25/20 07:32 05/25/20 07:32 05/25/20 07:32 - Laboratory Result Diagrams: 05/25/20 08:55 05/25/20 08:55 Laboratory results interpreted by me: 05/25/20 05/25/20 05/25/20 08:55 08:55 10:00 Lymph % (Auto) 8.2 L Seg Neutrophils % 83.5 H Total Bilirubin 1.4 H Urine Ketones 20 H Urine Urobilinogen 2.0 H Urine Ascorbic Acid 40 H - Diagnostic Test Radiology reviewed: Image reviewed, Reports reviewed - Chest x-ray does not show acute cardiopulmonary process Discharge - Discharge Clinical Impression: Viral upper respiratory tract infection with cough, Encounter for laboratory testing for COVID-19 virus Condition: Stable Disposition: HOME, SELF-CARE Instructions: COVID-19 Guidance for Persons Under Investigation Additional Instructions: Upper Respiratory Illness You have a viral infection of the respiratory passages -- a "cold." This common infection causes nasal congestion, drainage, and often sore throat and cough. It is caused by a virus and is highly contagious. The disease usually lasts a week or more, though the worst symptoms are usually over in 3 or 4 days. There is no "cure" for the viral infection -- it must run its course. If there is a complication, such as bacterial infection in the nose, sinuses, middle ear, or bronchial tubes, antibiotics may be required, but antibiotics won't affect the virus. If you smoke, you should STOP!! Drink plenty of fluids. A humidifier may help. An expectorant medication or decongestant may make you more comfortable. Use acetaminophen or ibuprofen for fever or aches. See the doctor if fever persists over two or three days, if there is any significant worsening of your symptoms, or if you simply fail to improve as expected. Viral Syndrome The physician has diagnosed a viral infection. Viruses not only cause "colds," but can cause many different symptoms including generalized aching, fever, headache, cough, diarrhea, nausea, vomiting, and fatigue. The treatment, for the most part, is simply relief of symptoms. This means that antibiotics are usually not given. Rest, fluids, pain medications and, occasionally, medication for the specific symptoms that are most bothersome will be prescribed. Use good handwashing to avoid passing the virus to others. Shared toys should be cleaned with disinfectant. Clean the toilets, sinks, and counter surfaces in bathrooms. Launder clothing in hot water. Contact the physician if you develop any new or unusual symptoms such as severe headache, stiff neck, high fever, chest pain, productive cough, or shortn ess of breath. You should be rechecked if you don't see marked improvement within seven to 10 days. Take Tylenol for fever and generalized aches. You may take ibuprofen if you know that you are not allergic to it. Drink plenty of fluids and stay well-hydrated. Get plenty of rest and sleep to help get over your illness. Try Robitussin-DM or Delsym DM to help suppress your coughing if needed, if you are not allergic to the dextromethorphan.. Self isolate until you get the results of the Covid testing. Follow-up with a local primary care provider if not improving over the next 1 to 2 weeks. RETURN TO THE EMERGENCY ROOM IF ANY NEW OR WORSENING SYMPTOMS. I personally performed the services described in the documentation, reviewed and edited the documentation which was dictated to the scribe in my presence, and it accurately records my words and actions.
[2020-05-25 09:22] LABS: ABSOLUTE EOSINOPHILS # (AUTO) 0.1 10^3/uL (0.0-0.6); ABSOLUTE LYMPHOCYTES (AUTO) 0.7 10^3/uL (0.5-4.7); ABSOLUTE MONOCYTES (AUTO) 0.6 10^3/uL (0.1-1.4); ABSOLUTE NEUT (AUTO) 7.3 10^3/uL (1.7-8.2); BASOPHILS % (AUTO) 0.3 % (0-2); EOSINOPHILS % (AUTO) 1.1 % (0-6); HEMATOCRIT 44.7 % (37.9-51.0); HEMOGLOBIN 15.6 g/dL (13.5-17.0); LYMPHOCYTES % (AUTO) 8.2 % (13-45); MEAN CORPUSCULAR HEMOGLOBIN 30.8 pg (27.0-33.4); MEAN CORPUSCULAR HGB CONC 34.8 g/dL (32.0-36.0); MEAN CORPUSCULAR VOLUME 88 fl (80-97); MONOCYTES % (AUTO) 6.9 % (3-13); PLATELET COUNT 189 10^3/uL (150-450); RED BLOOD COUNT 5.06 10^6/uL (4.35-5.55); RED CELL DISTRIBUTION WIDTH 12.4 % (11.5-14.0); SEGMENTED NEUTROPHILS % (AUTO) 83.5 % (42-78); TOTAL CELLS COUNTED % (AUTO) 100 %; WHITE BLOOD COUNT 8.7 10^3/uL (4.0-10.5)
[2020-05-25 09:35] LABS: A TYPE INFLUENZA AG NEGATIVE (NEGATIVE); B INFLUENZA AG NEGATIVE (NEGATIVE)
[2020-05-25 09:45] LABS: ALBUMIN 4.4 g/dL (3.5-5.0); ALKALINE PHOSPHATASE 47 U/L (38-126); ANION GAP 9 (5-19); ASPARTATE AMINO TRANSFERASE 30 U/L (17-59); BILIRUBIN,TOTAL 1.4 mg/dL (0.2-1.3); BLOOD UREA NITROGEN 12 mg/dL (7-20); CALCIUM 9.5 mg/dL (8.4-10.2); CARBON DIOXIDE 27 mmol/L (22-30); CHLORIDE 103 mmol/L (98-107); CREATINE KINASE 55 U/L (55-170); GLUCOSE 92 mg/dL (75-110); POTASSIUM 3.9 mmol/L (3.6-5.0); TOTAL PROTEIN 6.7 g/dL (6.3-8.2)
[2020-05-25 09:47] LABS: C-REACTIVE PROTEIN < 5.0 mg/L (<10.0)
[2020-05-25 10:20] LABS: APPEARANCE,URINE CLEAR; BILIRUBIN,URINE NEGATIVE (NEGATIVE); COLOR,URINE YELLOW; GLUCOSE, URINE NEGATIVE (NEGATIVE); KETONES,URINE 20 mg/dL (NEGATIVE); LEUKOCYTE ESTERASE,URINE NEGATIVE (NEGATIVE); NITRITE,URINE NEGATIVE (NEGATIVE); PROTEIN,URINE NEGATIVE (NEGATIVE); URINE SPECIFIC GRAVITY 1.031
[2020-05-25 11:24] VITALS: BP 120/58
== END 2020-05-25 11:18 | disposition home or self-care (01) ==
LOC: ER 07:26
DX: J06.9 Acute upper respiratory infection, unspecified (principal); B97.89 Other viral agents as the cause of diseases classified elsewhere; R50.9 Fever, unspecified; R05 Cough; R09.81 Nasal congestion; J34.89 Other specified disorders of nose and nasal sinuses; J45.909 Unspecified asthma, uncomplicated; Z59.0 Homelessness; Z88.8 Allergy status to other drugs, medicaments and biological substances; Z88.6 Allergy status to analgesic agent; Z88.5 Allergy status to narcotic agent; Z88.0 Allergy status to penicillin; Z20.828 Contact with and (suspected) exposure to other viral communicable diseases
CPT/HCPCS: 99284; 36415; 87070; 87880; 82550; 85025; 87635; 86140; 80053; 81001; 87804; 71045; J3490; C9803